=== PATIENT | female | born 1975 | race American Indian/Alaskan Native ===

== ENCOUNTER 2016-06-10 19:30 | Emergency (ER) | payer OTHER ==
[2016-06-10 19:41] VITALS: BP 116/80; PULSE 95; TEMP 98.2; BMI 25.9
--- NOTE | 2016-06-10 19:48 | PDOC ---
History of Present Illness - General History Source: Patient Exam Limitations: No Limitations - History of Present Illness Initial Comments: 06/10/16 20:14 The patient is a 40 year old female with a history of chronic body pain, who presents to the ED with chest congestion, cough, migraine headache, and generalized malaise. The patient states she has been having on and off body pains throughout the past few years after an incident where she fell down. Patient states her three daughters have all sick with cough, and cold. Patient denies any fever, chills, nausea, vomiting. Patient denies any urinary symptoms. <Marcus Castro - Last Filed: 06/10/16 20:14> <Alona Lockett - Last Filed: 06/11/16 05:34> - General Chief Complaint: Pain Stated Complaint: BODY ACHES,RT ARM,LF LEG, BACK,COUGH, STUFFY NOSE Time Seen by Provider: 06/10/16 19:38 Past History <Marcus Castro - Last Filed: 06/10/16 20:14> - Past Medical History Asthma: No Cancer: No Cardiac Disorders: No Diabetes: No HTN: No Kidney Stones: Yes Seizures: No Thyroid Disease: No - Family Disease History Family Disease History: Heart Disease: Mother, Other: Father (stroke) - Immunization History Immunization Up to Date: No - Psycho/Social/Smoking Cessation Hx Anxiety: No Suicidal Ideation: No Smoking Status: No Smoking History: Never smoked Have you smoked in the past 12 months: Yes Number of Cigarettes Smoked Daily: 7 If you are a former smoker, when did you quit?: 12/2012 Information on smoking cessation initiated: Yes 'Breaking Loose' booklet given: 06/10/16 Hx Alcohol Use: No Drug/Substance Use Hx: No Substance Use Type: None Hx Substance Use Treatment: No <Alona Lockett - Last Filed: 06/11/16 05:34> - Past Medical History Allergies/Adverse Reactions: Allergies Allergy/AdvReac Type Severity Reaction Status Date / Time No Known Allergies Allergy Verified 06/10/16 19:36 Home Medications: Ambulatory Orders Cyclobenzaprine HCl [Flexeril -] 10 mg PO HS #30 tablet 02/11/16 Gabapentin 300 mg PO BID 02/12/16 Ibuprofen 800 mg PO TID PRN #20 tablet 06/10/16 Methocarbamol [Robaxin -] 500 mg PO TID PRN #21 tablet 06/10/16 Review of Systems - Review of Systems Able to Perform ROS?: Yes Comments:: 06/10/16 20:14 CONSTITUTIONAL: Present: malaise. Absent: fever, no chills EYES: Absent: visual changes ENT: Absent: ear pain, no sore throat CARDIOVASCULAR: Absent: chest pain, no palpitations RESPIRATORY: Present: cough Absent: no SOB GI: Absent: abdominal pain, no nausea, no vomiting, no constipation, no diarrhea GENITOURINARY: Absent: dysuria, no frequency, no hematuria MUSKULOSKELETAL: Absent: back pain, no arthralgia, no myalgia SKIN: Absent: rash NEURO: Present: headache. <Marcus Castro - Last Filed: 06/10/16 20:14> *Physical Exam - Vital Signs Last Vital Signs Temp Pulse Resp BP Pulse Ox 98.2 F 95 H 18 116/80 100 06/10/16 19:30 06/10/16 19:30 06/10/16 19:30 06/10/16 19:30 06/10/16 19:30 - Physical Exam Comments: 06/10/16 20:16 GENERAL: The patient is awake, alert, and fully oriented, in no acute distress. HEAD: Normal with no signs of trauma. EYES: Pupils equal, round and reactive to light, extraocular movements intact, sclera anicteric, conjunctiva clear with no pallor. ENT: Ears normal, nares patent, oropharynx clear without exudates. Dry mucous membranes. NECK: Normal range of motion, supple without lymphadenopathy, JVD, or masses. LUNGS: Breath sounds equal, clear to auscultation bilaterally. No wheeze/ crackles. HEART: Regular rate and rhythm, normal S1 and S2 without murmur or rub. ABDOMEN: Mild tenderness at mid-epigastric region with no peritoneal signs. BS wnl. No guarding or rebound. No palpable masses. No hepatosplenomegaly. EXTREMITIES: Pain on straight leg raising. Normal range of motion, no edema. No clubbing or cyanosis. No cords, erythema, or tenderness. NEUROLOGICAL: Cranial nerves II through XII grossly intact. Normal speech, normal gait. PSYCH: Normal mood, normal affect. SKIN: Warm, Dry, normal turgor, no rashes or lesions noted. <Marcus Castro - Last Filed: 06/10/16 20:14> - Vital Signs Last Vital Signs Temp Pulse Resp BP Pulse Ox 98.2 F 95 H 18 116/80 100 06/10/16 19:30 06/10/16 19:30 06/10/16 19:30 06/10/16 19:30 06/10/16 19:30 <Alona Lockett - Last Filed: 06/11/16 05:34> ED Treatment Course - Medications Given in the ED: ED Medications Discontinued Medications Generic Name Dose Route Start Last Admin Trade Name Hellen PRN Reason Stop Dose Admin Ketorolac Tromethamine 60 mg 06/10/16 20:04 06/10/16 20:07 Toradol Injection - IM 06/10/16 20:05 60 mg ONCE ONE Administration <Marcus Castro - Last Filed: 06/10/16 20:14> Medical Decision Making - Medical Decision Making Documentation has been prepared under my direction and personally reviewed by me in its entirety. I attest that this documented accurately reflects all work, treatment, procedures and medical decision making performed by me. As noted above, this 40-year-old woman with a history of chronic neck pain/ lower back pain presents with several day history of chest congestion, subjective fever, generalized bodyaches. No new history of sensory losses or weakness. Patient has taken [id number] nonsteroidal anti-inflammatory medications and Flexeril muscle relaxant without significant relief. Exam as noted above. Patient given Toradol 60 mg IM. She is been advised to follow-up with her neurologist and physical therapist for further treatment of her chronic neck pain and lower back pain. Meanwhile, prescriptions for Motrin 800 mg as well as Robaxin 500 mg to be used as needed for pain and muscle spasm respectively will be sent to her pharmacy. She should return to the emergency room if she has any new sensory or motor findings. <Alona Lockett - Last Filed: 06/11/16 05:34> *DC/Admit/Observation/Transfer - Attestations Scribe Attestion: 06/10/16 20:17 Documentation prepared by Marcus Castro, acting as medical pathology teacher for Alona Lockett MD. <Marcus Castro - Last Filed: 06/10/16 20:14> <Alona Lockett - Last Filed: 06/11/16 05:34> Diagnosis at time of Disposition: Viral syndrome, Chronic neck pain - Discharge Dispostion Disposition: HOME Condition at time of disposition: Stable - Prescriptions Prescriptions: Ibuprofen 800 mg PO TID PRN #20 tablet PRN Reason: Pain Methocarbamol [Robaxin -] 500 mg PO TID PRN #21 tablet PRN Reason: Muscle Spasms - Patient Instructions Printed Discharge Instructions: Chronic Neck Pain Additional Instructions: rest;drink plenty of fluids warm compresses to areas of muscle spasm as needed Motrin as needed for pain Robaxin 500mg up to 3 times a day for muscle spasms followup with your neurologist within 2-3 days return to ER as needed
[2016-06-10] MEDS ORDERED: KETOROLAC TROMETHAMINE 60 MG/2 ML VIAL IM ONE (20:04)
[2016-06-10] MEDS ORDERED: CYCLOBENZAPRINE HCL 10 MG TABLET (FP) ONE (20:35)
[2016-06-10] MEDS ORDERED: IBUPROFEN 400 MG TABLET (FP) PO ONE (20:36)
== END 2016-06-10 20:45 | disposition home or self-care (01) ==
LOC: FER 19:30
PROC: 3E0233Z Introduction of Anti-inflammatory into Muscle, Percutaneous Approach (ICD-10-PCS; principal; 2016-06-10)
DX: B34.9 Viral infection, unspecified (principal); M54.2 Cervicalgia; G89.29 Other chronic pain
CPT/HCPCS: 99283-25

== ENCOUNTER 2016-07-17 00:49 | Emergency (ER) | payer OTHER ==
[2016-07-17 00:57] VITALS: BP 113/81; PULSE 92; TEMP 97.9; BMI 25.8
--- NOTE | 2016-07-17 00:59 | PDOC ---
History of Present Illness - General Chief Complaint: Respiratory Stated Complaint: COUGH X 2 WEEKS Time Seen by Provider: 07/17/16 00:54 History Source: Patient Exam Limitations: No Limitations - History of Present Illness Initial Comments: 07/17/16 00:54 This is a 40-year-old female comes in complaining of 2 weeks of intermittent persistent cough. Patient denies any fevers or chills. Patient was noted to be coughing in the emergency room and not bringing up anything when she coughed. Patient says she occasionally brings up something that is whitish patient said that her muscles are sore from her coughing and she is having a difficult time sleeping at night. PAST MEDICAL HISTORY: no significant history PAST SURGICAL HISTORY: no significant history FAMILY HISTORY: no pertinant history SOCIAL HISTORY: Pt lives with family and is employed. MEDICATIONS: reviewed ALLERGIES: As per nursing notes Review of Systems General: No fevers or chills, no weakness, no weight loss HEENT: No change in vision. No sore throat,. No ear pain CardioVascular: No chest pain or shortness of breath Respiratory:+ Cough Gastrointestinal: no nausea, vomitting, diarrhea or constipation, No rectal bleeding Genitourinary: No dysuria, hematuria, or frequency Musculoskeletal: No joint or muscle pain or swelling Neurologic: No headache, vertigo, dizziness or loss of consciousness Psychiatric: nor depression Skin: No rashes or easy bruising Endocrine: no increased thirst or abnormal weight change Allergic: no skin or latex allergy All other systems reviewed and normal GENERAL: The patient is awake, alert, and fully oriented, in no acute distress. HEAD: Normal with no signs of trauma. EYES: Pupils equal, round and reactive to light, extraocular movements intact, sclera anicteric, conjunctiva clear. CHEST: Lungs are clear to auscultation, there is good air entry, there is no wheezing, rhonchi, or rales EXTREMITIES: Normal range of motion, no edema. NEUROLOGICAL: Normal speech, normal gait. PSYCH: Normal mood, normal affect. SKIN: Warm, Dry, normal turgor, no rashes or lesions noted. Assessment and plan: This is a 40-year-old female who comes in with what she says is 2 weeks of coughing. Patient is not on any cough medication. Patient otherwise has no fever or any other symptoms of bronchitis or pneumonia. Patient 's cough is mostly dry. Patient given prescription for Tessalon Perles and told to follow-up with her primary care if not better in a few days Past History - Past Medical History Allergies/Adverse Reactions: Allergies Allergy/AdvReac Type Severity Reaction Status Date / Time No Known Allergies Allergy Verified 07/17/16 00:51 Home Medications: Ambulatory Orders Benzonatate [Tessalon Pearls -] 100 mg PO TID #21 capsule 07/17/16 Asthma: No Cancer: No Cardiac Disorders: No Diabetes: No HTN: No Kidney Stones: Yes Seizures: No Thyroid Disease: No - Family Disease History Family Disease History: Heart Disease: Mother, Other: Father (stroke) - Immunization History Immunization Up to Date: No - Psycho/Social/Smoking Cessation Hx Anxiety: No Suicidal Ideation: No Smoking Status: No Smoking History: Former smoker Have you smoked in the past 12 months: Yes Number of Cigarettes Smoked Daily: 7 If you are a former smoker, when did you quit?: 2012 'Breaking Loose' booklet given: 06/10/16 Hx Alcohol Use: No Drug/Substance Use Hx: No Substance Use Type: None Hx Substance Use Treatment: No *DC/Admit/Observation/Transfer Diagnosis at time of Disposition: Persistent cough - Discharge Dispostion Condition at time of disposition: Stable - Prescriptions Prescriptions: Benzonatate [Tessalon Pearls -] 100 mg PO TID #21 capsule - Referrals Referrals: Channing Teague MD [Primary Care Provider] - - Patient Instructions Additional Instructions: Take Tessalon Perles 1 capsule 3 times a day as needed for the cough for the next 7 days. Return to the emergency department immediately with ANY new, persistent or worsening symptoms. Continue any medications as previously prescribed by your physician. You should follow up with your primary doctor as soon as possible regarding today's emergency department visit. . Please make sure your doctor reviews the results of your emergency evaluation. Thank you for coming to the Emergency Department today for your care. It was a pleasure to see you today. Please note that your evaluation is INCOMPLETE until you follow-up with your doctor.
== END 2016-07-17 01:03 | disposition home or self-care (01) ==
LOC: FER 00:49
DX: R05 Cough (principal); Z87.891 Personal history of nicotine dependence
CPT/HCPCS: 99281-25

== ENCOUNTER 2017-10-15 17:46 | Emergency (ER) | payer OTHER ==
[2017-10-15 18:00] VITALS: BP 102/71; PULSE 75; TEMP 97.8; BMI 24.2
--- NOTE | 2017-10-15 18:36 | PDOC ---
History of Present Illness - General Chief Complaint: Pain Stated Complaint: CHEST PAIN Time Seen by Provider: 10/15/17 18:28 - History of Present Illness Initial Comments: 41-year-old female without comorbidities presents for evaluation of right shoulder pain. She points to the area of the right trapezius as the area of her discomfort she describes her pain as sharp exacerbated with activity relieved with massage the area with radiation into the arm. She has not taken anything for it. 10/15/17 18:32 Past History - Past Medical History Allergies/Adverse Reactions: Allergies Allergy/AdvReac Type Severity Reaction Status Date / Time No Known Allergies Allergy Verified 10/15/17 17:50 Home Medications: Ambulatory Orders Cyclobenzaprine HCl [Flexeril 10 mg] 10 mg PO HS PRN #10 tablet 10/15/17 Methylprednisolone [Medrol Dose Alexander] 4 mg PO ASDIR #21 tablet 10/15/17 Asthma: No Cancer: No Cardiac Disorders: No COPD: No Diabetes: No HTN: No Kidney Stones: Yes Seizures: No Thyroid Disease: No - Family Disease History Family Disease History: Heart Disease: Mother, Other: Father (stroke) - Immunization History Immunization Up to Date: No - Suicide/Smoking/Psychosocial Hx Smoking Status: No Smoking History: Former smoker Have you smoked in the past 12 months: Yes Number of Cigarettes Smoked Daily: 15 If you are a former smoker, when did you quit?: 2012 Information on smoking cessation initiated: Yes 'Breaking Loose' booklet given: 10/15/17 Hx Alcohol Use: No Drug/Substance Use Hx: No Substance Use Type: None Hx Substance Use Treatment: No Review of Systems - Review of Systems Musculoskeletal: Yes: See HPI, Neck Pain All Other Systems: Reviewed and Negative *Physical Exam - Vital Signs Last Vital Signs Temp Pulse Resp BP Pulse Ox 97.8 F 75 18 102/71 100 10/15/17 17:58 10/15/17 17:58 10/15/17 17:58 10/15/17 17:58 10/15/17 17:58 - Physical Exam Comments: GENERAL: The patient is awake, alert, and fully oriented, in no acute distress. HEAD: Normal with no signs of trauma. EYES: conjunctiva clear. ENT: Ears normal LUNGS: Breath sounds equal, clear to auscultation bilaterally. No wheezes, and no crackles. HEART: Regular rate and rhythm, normal S1 and S2 without murmur, rub or gallop. EXTREMITIES: Normal range of motion, no edema. No clubbing or cyanosis. No cords, erythema, or tenderness. NEUROLOGICAL: Cranial nerves II through XII grossly intact. Normal speech, normal gait. PSYCH: Normal mood, normal affect. SKIN: Warm, Dry, normal turgor, no rashes or lesions noted. Cervical spine skin color and temperature within normal limits she has decreased range of motion with pain. She has 5 out of 5 strength in bilateral upper extremities. She has a positive Spurling maneuver on the right negative on the left. She has no gross sensorimotor deficits. She's neurovascularly intact. 10/15/17 18:33 Medical Decision Making - Medical Decision Making Cervical radiculopathy. I'll give her Medrol Dosepak and Flexeril and have her follow-up with spine surgery. She does have a history of cervical radicular symptoms. She's undergone several cortisone shots in the past and her cervical spine. 10/15/17 18:34 *DC/Admit/Observation/Transfer Diagnosis at time of Disposition: Cervical radiculopathy - Discharge Dispostion Disposition: HOME Condition at time of disposition: Stable Decision to Admit order: No - Referrals Referrals: Channing Teague MD [Primary Care Provider] - Phillip Freed MD [Staff Physician] - - Patient Instructions Printed Discharge Instructions: DI for Cervical Radiculopathy Additional Instructions: Please follow-up with spine surgery for further evaluation and treatment options within the next 2-3 days. I've given you a steroid pack which she should start tomorrow morning and a muscle relaxer which should take one tablet before bedtime as it'll make you tired. Return to the emergency room should her symptoms worsen or go unresolved. - Post Discharge Activity
--- NOTE | 2017-10-17 13:03 | EKG ---
Test Reason : Blood Pressure : / mmHG Vent. Rate : 064 BPM Atrial Rate : 064 BPM P-R Int : 140 ms QRS Dur : 082 ms QT Int : 412 ms P-R-T Axes : 012 042 031 degrees QTc Int : 425 ms NORMAL SINUS RHYTHM NORMAL ECG WHEN COMPARED WITH ECG OF 13-AUG-2015 11:26, NO SIGNIFICANT CHANGE WAS FOUND Confirmed by EMMA WEBB MD ([id number]) on 10/17/2017 1:02:35 PM Referred By: Confirmed By:EMMA WEBB MD
== END 2017-10-15 18:45 | disposition home or self-care (01) ==
LOC: JERFT 17:46
DX: M54.12 Radiculopathy, cervical region (principal)
CPT/HCPCS: 93005; 93010; 99281-25

== ENCOUNTER 2018-02-23 12:01 | Emergency (ER) | payer OTHER ==
--- NOTE | 2018-02-23 12:14 | PDOC ---
History of Present Illness - General Chief Complaint: Pain Stated Complaint: RIGHT RIB PAIN Time Seen by Provider: 02/23/18 12:12 History Source: Patient Exam Limitations: No Limitations - History of Present Illness Initial Comments: 42 yo F no significant history (however she does have history of smoking) presenting with R sided rib pain. She noted that it is worse when she stretches her R arm, presses on the area, and when she was outside in the cold air. No recent fever, chills. +Cough today, which also reproduces the pain. No known sick contacts. No trauma. Denies SOB, GRANADOS, leg swelling. Does not use OCPs. Past History - Past Medical History Allergies/Adverse Reactions: Allergies Allergy/AdvReac Type Severity Reaction Status Date / Time No Known Allergies Allergy Verified 10/15/17 17:50 Home Medications: Ambulatory Orders Azithromycin [Zithromax 250mg Tablets -] 250 mg PO UTDICT #6 tab 02/23/18 Ibuprofen [Advil -] 200 mg PO ONCE 02/23/18 Asthma: No Cancer: No Cardiac Disorders: No COPD: No Diabetes: No HTN: No Kidney Stones: Yes Seizures: No Thyroid Disease: No - Family Disease History Family Disease History: Heart Disease: Mother, Other: Father (stroke) - Immunization History Immunization Up to Date: No - Suicide/Smoking/Psychosocial Hx Smoking Status: No Smoking History: Former smoker Have you smoked in the past 12 months: Yes Number of Cigarettes Smoked Daily: 15 If you are a former smoker, when did you quit?: 2012 'Breaking Loose' booklet given: 10/15/17 Hx Alcohol Use: No Drug/Substance Use Hx: No Substance Use Type: None Hx Substance Use Treatment: No Review of Systems - Review of Systems Able to Perform ROS?: Yes Comments:: GENERAL/CONSTITUTIONAL: No fever or chills. No weakness. HEAD, EYES, EARS, NOSE AND THROAT: No change in vision. No ear pain or discharge. No sore throat. CARDIOVASCULAR: No chest pain or shortness of breath. +R rib pain. RESPIRATORY: +Cough. No wheezing or hemoptysis. GASTROINTESTINAL: No nausea, vomiting, diarrhea or constipation. GENITOURINARY: No dysuria, frequency, or change in urination. MUSCULOSKELETAL: No joint or muscle swelling or pain. No neck or back pain. SKIN: No rash NEUROLOGIC: No headache, vertigo, loss of consciousness, or change in strength/ sensation. ENDOCRINE: No increased thirst. No abnormal weight change. HEMATOLOGIC/LYMPHATIC: No anemia, easy bleeding, or history of blood clots. ALLERGIC/IMMUNOLOGIC: No hives or skin allergy. *Physical Exam - Physical Exam Comments: GENERAL: Awake, alert, and fully oriented, in no acute distress HEAD: No signs of trauma EYES: PERRLA, EOMI, sclera anicteric, conjunctiva clear ENT: Auricles normal inspection, hearing grossly normal, nares patent, oropharynx clear without exudates. Moist mucosa NECK: Normal ROM, supple, no lymphadenopathy, JVD, or masses LUNGS: Dec air entry B/L, intermittent dry cough. Breath sounds equal. No wheezes, and no crackles. Pain reproducible to R lower rib margin. HEART: Regular rate and rhythm, normal S1 and S2, no murmurs, rubs or gallops ABDOMEN: Soft, mild RUQ tenderness, normoactive bowel sounds. No guarding, no rebound. No masses EXTREMITIES: Normal range of motion, no edema. No clubbing or cyanosis. No cords, erythema, or tenderness NEUROLOGICAL: Cranial nerves II through XII grossly intact. Normal speech, normal gait SKIN: Warm, Dry, normal turgor, no rashes or lesions noted. Medical Decision Making - Medical Decision Making 02/23/18 13:59 DDx includes MSK pain, acute marlene, pna. PE unlikely in light of clinical presentation. Pt reports improvement s/p neb treatment, but now with loose productive cough. Suspect this is bronchitis with bronchospasm. Will give azithro in light of smoking history. US no acute findings (obtained because the pain was close to the R anterior inferior costal margin, near GB). CXR no consolidation. Stable for DC home. *DC/Admit/Observation/Transfer Diagnosis at time of Disposition: Chest wall pain - Discharge Dispostion Disposition: HOME Condition at time of disposition: Stable Decision to Admit order: No - Prescriptions Prescriptions: Azithromycin [Zithromax 250mg Tablets -] 250 mg PO UTDICT #6 tab - Referrals Referrals: Channing Teague MD [Primary Care Provider] - - Patient Instructions Printed Discharge Instructions: DI for Acute Bronchitis, DI for Atypical Chest Pain - Post Discharge Activity
[2018-02-23 12:28] LABS: URINE APPEARANCE Cloudy; URINE BILIRUBIN Negative (NEGATIVE); URINE COLOR Yellow; URINE GLUCOSE (UA) Negative (NEGATIVE); URINE KETONE Negative (NEGATIVE); URINE LEUK ESTERASE TRACE (NEGATIVE); URINE NITRITE Negative (NEGATIVE); URINE PROTEIN Negative (NEGATIVE); URINE UROBILINOGEN 0.2 (0.2-1.0)
[2018-02-23 12:35] LABS: HCG,QUALITATIVE URINE Negative
[2018-02-23 12:40] VITALS: BP 110/72; PULSE 88; TEMP 98.7; BMI 24.2
[2018-02-23] MEDS ORDERED: ALBUTEROL SO4 0.083% IH SOL 2.5 MG/3 ML VIAL.NEB. NEB ONE ×2 (12:44→12:49)
[2018-02-23 12:54] LABS: EPI CELLS 4+ /HPF; URINE RBC 0-2 /hpf (0-3); URINE WBC 0-2 (0-5)
--- NOTE | 2018-02-24 11:33 | EKG ---
Test Reason : Blood Pressure : / mmHG Vent. Rate : 077 BPM Atrial Rate : 077 BPM P-R Int : 152 ms QRS Dur : 080 ms QT Int : 388 ms P-R-T Axes : 066 041 042 degrees QTc Int : 439 ms POOR DATA QUALITY, INTERPRETATION MAY BE ADVERSELY AFFECTED NORMAL SINUS RHYTHM NORMAL ECG WHEN COMPARED WITH ECG OF 15-OCT-2017 18:03, NO SIGNIFICANT CHANGE WAS FOUND Confirmed by MAYLIN ROBERTO MD ([id number]) on 02/24/2018 11:33:22 AM Referred By: BRICE HUNT Confirmed By:MAYLIN ROBERTO MD
== END 2018-02-23 14:01 | disposition home or self-care (01) ==
LOC: FER 12:01
PROC: 3E0F7GC Introduction of Other Therapeutic Substance into Respiratory Tract, Via Natural or Artificial Opening (ICD-10-PCS; principal; 2018-02-23)
DX: R07.89 Other chest pain (principal); Z87.891 Personal history of nicotine dependence
CPT/HCPCS: 71046-TC-FY; 76705-TC; 81003; 81015; 84703; 93005; 99282-25

== ENCOUNTER 2018-11-27 23:53 | Emergency (ER) | payer OTHER, SELFPAY | END 2018-11-28 02:13 | disposition home or self-care (01) | LOC: FER 23:53 ==

== ENCOUNTER 2018-12-10 00:25 | Emergency (ER) | payer SELFPAY ==
[2018-12-10 00:33] VITALS: BP 111/76; PULSE 81; BMI 25.9
[2018-12-10] MEDS ORDERED: KETOROLAC TROMETHAMINE 60 MG/2 ML VIAL IM ONE (00:33)
[2018-12-10] MEDS ORDERED: CYCLOBENZAPRINE HCL 10 MG TABLET (FP) PO ONE (00:33)
[2018-12-10] MEDS ORDERED: predniSONE 20 MG TABLET (UD) PO ONE (00:33)
[2018-12-10] MEDS ORDERED: CYCLOBENZAPRINE HCL 10 MG TABLET (FP) ONE (00:36)
[2018-12-10] MEDS ORDERED: KETOROLAC TROMETHAMINE 60 MG/2 ML VIAL ONE (00:36)
[2018-12-10] MEDS ORDERED: predniSONE 20 MG TABLET (UD) ONE (00:36)
--- NOTE | 2018-12-10 00:38 | PDOC ---
History of Present Illness - General Chief Complaint: Pain, Acute Stated Complaint: PAIN RIGHT SIDE OF BACK RADIATING DOWN LEG Time Seen by Provider: 12/10/18 00:28 History Source: Patient Exam Limitations: No Limitations - History of Present Illness Initial Comments: 12/10/18 00:32 This is a 42-year-old female with long history of chronic back neck and sciatica pain who intermittently has flareups. Patient said she was moving this weekend and it caused R of her pain to flare up. Patient was moving this weekend and said that after moving this weekend and everything has flared up. Patient says there is no new component to it other than it is worse than usual. Patient denies that there is any loss of continence or weakness. Patient is experiencing some what she calls pins and needles in her leg. Allergies: as per nursing notes Past Medical History: none Social history: Lives with family. No smoking. No alcohol. No illicit drugs. Surgical history: None General: No fevers or chills, no weakness, no weight loss HEENT: No change in vision. No sore throat,. No ear pain CardioVascular: no chest discomfort. No shortness of breath Respiratory:No cough, or wheezing. Gastrointestinal: no nausea, vomiting, diarrhea or constipation, No rectal bleeding Genitourinary: No dysuria, hematuria, or frequency Musculoskeletal: No joint or muscle pain or swelling Neurologic: No headache, vertigo, dizziness or loss of consciousness BACK sciatica and low back pain Psychiatric: nor depression Skin: No rashes or easy bruising Endocrine: no increased thirst or abnormal weight change Allergic: no skin or latex allergy All other systems reviewed and normal GENERAL: The patient is awake, alert, and fully oriented, in no acute distress. HEAD: Normal with no signs of trauma. EYES: Pupils equal, round and reactive to light, extraocular movements intact, sclera anicteric, conjunctiva clear. Back: There is tenderness on palpation over the sciatic area bilaterally as well as the lower lumbar upper sacral spine was a lateral paraspinal spasm. Neurovascular is intact. EXTREMITIES:atraumatic, Normal range of motion, no edema. NEUROLOGICAL: Normal speech, normal gait. PSYCH: Normal mood, normal affect. SKIN: Warm, Dry, normal turgor, no rashes or lesions noted. Assessment and plan: This is a 42-year-old female with acute exacerbation of her low back and sciatica pain secondary to moving this weekend. Patient given Toradol, prednisone and Flexeril and discharged home. Patient will follow-up with her primary care doctor. Past History - Past Medical History Allergies/Adverse Reactions: Allergies Allergy/AdvReac Type Severity Reaction Status Date / Time No Known Allergies Allergy Verified 12/10/18 00:27 Home Medications: Ambulatory Orders Hydrocortisone 2.5% Topical Cr [Anusol 2.5% Hc Cream -] 1 applic RC BID #1 tube 11/28/18 Cyclobenzaprine HCl [Flexeril -] 10 mg PO HS #30 tablet 12/10/18 Hydrocortisone 2.5% Topical Cr [Anusol 2.5% Hc Cream -] 1 applic RC DAILY #1 tube 12/10/18 Naproxen [Naprosyn] 500 mg PO BID #28 tablet 12/10/18 Asthma: No Cancer: No Cardiac Disorders: No COPD: No Diabetes: No HTN: No Kidney Stones: Yes Seizures: No Thyroid Disease: No - Family Disease History Family Disease History: Heart Disease: Mother, Other: Father (stroke) - Immunization History Immunization Up to Date: No - Suicide/Smoking/Psychosocial Hx Smoking Status: No Smoking History: Current every day smoker Have you smoked in the past 12 months: Yes Number of Cigarettes Smoked Daily: 15 If you are a former smoker, when did you quit?: 2012 'Breaking Loose' booklet given: 10/15/17 Hx Alcohol Use: No Drug/Substance Use Hx: No Substance Use Type: None Hx Substance Use Treatment: No *DC/Admit/Observation/Transfer Diagnosis at time of Disposition: Sciatica - Discharge Dispostion Disposition: HOME Condition at time of disposition: Stable Decision to Admit order: No - Referrals - Patient Instructions Additional Instructions: For the back pain take naproxen 1 tablet twice a day. For the muscle spasm take Flexeril one tablet before bed it will also help to sleep. For the rectal pain use the Anusol cream as directed on the box. Return to the emergency department immediately with ANY new, persistent or worsening symptoms. Continue any medications as previously prescribed by your physician. You should follow up with your primary doctor as soon as possible regarding today's emergency department visit. . Please make sure your doctor reviews the results of your emergency evaluation. Thank you for coming to the Emergency Department today for your care. It was a pleasure to see you today. Please note that your evaluation is INCOMPLETE until you follow-up with your doctor. 4 - Post Discharge Activity
== END 2018-12-10 00:45 | disposition home or self-care (01) ==
LOC: FER 00:25
PROC: 3E0233Z Introduction of Anti-inflammatory into Muscle, Percutaneous Approach (ICD-10-PCS; principal; 2018-12-10)
DX: M54.41 Lumbago with sciatica, right side (principal); F17.210 Nicotine dependence, cigarettes, uncomplicated; N20.0 Calculus of kidney
CPT/HCPCS: 99281-25

== ENCOUNTER 2018-12-22 03:07 | Emergency (ER) | payer SELFPAY ==
--- NOTE | 2018-12-22 03:25 | PDOC ---
History of Present Illness - General Chief Complaint: Pain, Acute Stated Complaint: FELL INJURING LEFT FOOT AND LEFT SHOULDER/WRIST Time Seen by Provider: 12/22/18 03:09 - History of Present Illness Initial Comments: 12/22/18 03:53 This 43-year-old woman with no significant past medical history presents with left shoulder/wrist/ankle pain after a fall approximately an hour prior to presentation. Patient states that she was walking across the street in [place] when she fell in a pothole, turning her left ankle and bracing herself with her left arm. No head/neck trauma noted. No LOC. She was able to ambulate but has had an increasing pain in her left ankle as well as in the left upper back/left shoulder and left wrist since the injury. No chest pain/ shortness of breath/abdominal pain. On no daily medications No known ALLERGIES Denies smoking/daily alcohol/recreational drug use Past History - Past Medical History Allergies/Adverse Reactions: Allergies Allergy/AdvReac Type Severity Reaction Status Date / Time No Known Allergies Allergy Verified 12/22/18 03:09 Home Medications: Ambulatory Orders NK [No Known Home Medication] 12/22/18 Asthma: No Cancer: No Cardiac Disorders: No COPD: No Diabetes: No HTN: No Kidney Stones: Yes Seizures: No Thyroid Disease: No - Family Disease History Family Disease History: Heart Disease: Mother, Other: Father (stroke) - Immunization History Immunization Up to Date: No - Suicide/Smoking/Psychosocial Hx Smoking Status: No Smoking History: Current every day smoker Have you smoked in the past 12 months: Yes Number of Cigarettes Smoked Daily: 15 If you are a former smoker, when did you quit?: 2012 'Breaking Loose' booklet given: 12/10/18 Hx Alcohol Use: No Drug/Substance Use Hx: No Substance Use Type: None Hx Substance Use Treatment: No Review of Systems - Review of Systems Able to Perform ROS?: Yes Comments:: 12 point review of systems is negative except for what is noted in the history of present illness *Physical Exam - Physical Exam Comments: GENERAL: Adult female, alert and oriented 3, in mild distress secondary to ankle/shoulder area pain HEAD: Normal with no signs of trauma. EYES: PERRLA, EOMI, sclera anicteric, conjunctiva clear. NECK: Normal range of motion, supple without lymphadenopathy, JVD, or masses. No midline tenderness Moderate tenderness of the left trapezius muscle LUNGS: Breath sounds equal, clear to auscultation bilaterally. No wheezes, and no crackles. No chest wall tenderness HEART:Regular rate and rhythm, normal S1 and S2 without murmur, rub or gallop. EXTREMITIES: Mild tenderness of the acromioclavicular joint area, left side pain reproduced with abduction of left arm No left clavicular step offs or deformity present Left ankle: Mild edema/moderate tenderness just distal to lateral malleolus; no ligamentous instability present No fifth metatarsal tenderness/ edema NEUROLOGICAL: Cranial nerves II through XII grossly intact. Normal speech. No focal neurological deficits. Medical Decision Making - Medical Decision Making Left shoulder/left wrist/left ankle x-rays performed. Preliminary interpretation by me: No evidence of fracture or dislocation in any image. Clinical presentation consistent with left shoulder strain/left wrist strain/ left ankle sprain. Results discussed with patient. Removable stirrup splint placed on left ankle. Ed wrap applied to left wrist. Patient given 600 Motrin by mouth (patient states that she routinely takes ibuprofen for pain). She is discharged with suggestion to follow-up with Drs. Hernandez/Issac within the next week and to avoid strenuous activity over the next several days. *DC/Admit/Observation/Transfer Diagnosis at time of Disposition: Left shoulder strain Qualifiers: Encounter type: initial encounter Qualified Code(s): S46.912A - Strain of unspecified muscle, fascia and tendon at shoulder and upper arm level, left arm , initial encounter Left ankle sprain Qualifiers: Encounter type: initial encounter Involved ligament of ankle: anterior talofibular ligament Qualified Code(s): S93.492A - Sprain of other ligament of left ankle, initial encounter - Discharge Dispostion Disposition: HOME Condition at time of disposition: Stable - Referrals Referrals: Channing Teague MD [Primary Care Provider] - Phillip Hernandez MD [Staff Physician] - - Patient Instructions Printed Discharge Instructions: DI for Ankle Sprain Additional Instructions: Rest; avoid strenuous activity for the next few days splint to ankle/Ed wrap to wrist during the day for the next week Motrin 600-800 mg every 8 hours as needed for pain/take with food After 48 hours, local warm compresses to upper back as needed Follow-up with orthopedic group (Valentina Hernandez/Issac) within the next 5-7 days - Post Discharge Activity
[2018-12-22 03:28] VITALS: BP 121/74; PULSE 85; TEMP 98.3; BMI 25.8
[2018-12-22] MEDS ORDERED: IBUPROFEN 600 MG TABLET (FP) PO ONE ×2 (04:09→04:10)
== END 2018-12-22 04:42 | disposition home or self-care (01) ==
LOC: FER 03:07
PROC: 2W3RX1Z Immobilization of Left Lower Leg using Splint (ICD-10-PCS; principal; 2018-12-22)
DX: S93.492A Sprain of other ligament of left ankle, initial encounter (principal); S46.912A Strain of unspecified muscle, fascia and tendon at shoulder and upper arm level, left arm, initial encounter; W18.39XA Other fall on same level, initial encounter; Y93.89 Activity, other specified; Y92.89 Other specified places as the place of occurrence of the external cause; F17.210 Nicotine dependence, cigarettes, uncomplicated
CPT/HCPCS: 73030-TC-LT-FY; 73110-TC-LT-FY; 73610-TC-LT-FY; 99281-25

== ENCOUNTER 2019-03-06 19:46 | Emergency (ER) | payer OTHER ==
[2019-03-06 20:10] VITALS: BP 117/79; PULSE 84; TEMP 98.1; BMI 26.9
[2019-03-06] MEDS ORDERED: morphine CARPU-JECT 2 MG/1 ML DISP.SYRIN IM ONE (20:14)
[2019-03-06] MEDS ORDERED: morphine SULFATE 4 MG/ML VIAL ONE (20:19)
[2019-03-06] MEDS ORDERED: MINERAL OIL ENEMA 133 ML ENEMA PR ONE ×2 (20:42→20:50)
[2019-03-06] MEDS ORDERED: SODIUM PHOSPHATE/NA BIPHOS 133 ML ENEMA PR ONE ×2 (20:48→21:14)
--- NOTE | 2019-03-06 20:48 | PDOC ---
Documentation entered by Jyothi Villeda SCRIBE, acting as scribe for Deepa Tony MD. Deepa Tony MD: This documentation has been prepared by the Ronal cárdenas Sammi, SCRIBE, under my direction and personally reviewed by me in its entirety. I confirm that the documentation accurately reflects all work, treatment, procedures, and medical decision making performed by me. History of Present Illness - General Chief Complaint: Constipation Stated Complaint: CONSTIPATION Time Seen by Provider: 03/06/19 19:53 - History of Present Illness Initial Comments: 03/06/19 20:10 The patient is a 43 year old female who presents for evaluation of 3 days of constipation with last regular bowel movement Sunday night. She notes trying to disimpact it with her finger with no success. Denies trying any OTC treatments. The patient endorses nausea and the urge to vomit during episodes of straining. She also notes some blood on wiping. The patient states she has been snacking on a Jignesh cheese the past several days and notes this may be the cause constipation. Denies fever, chills, chest pain, SOB, palpitation, dizziness, weakness, D, bladder and bowel problems, leg swelling, No sick contacts or travel. No new changes in medications. Allergies: None Past Medical History: Hemorrhoids, chronic back pain, sciatica, psoriasis Social history: Lives with family. No tobacco, ETOH or drug use. Meds: as documented in EMR ROS Constitutional: no fevers or chills. HEENT: no headache or dizziness. No congestion. No visual/hearing disturbances. CVS: no cp or syncope. Resp: no sob. No cough. Gastrointestinal: +constipation +nausea, no vomiting or diarrhea. +abdominal pressure. Genitourinary: no urinary sx, hematuria. MUSCULOSKELETAL: No joint pain and swelling. No neck or back pain. NEUROLOGIC: No headache, dizziness, LOC or altered mental status. No weakness, numbness or tingling. Psych: no anxiety or depression Allergic/Immunologic: no allergies All other systems reviewed and negative, or as documented in HPI. Physical exam: General: Well appearing, awake and alert, NAD. HEENT: NCAT, PERRL, EOMI, clear conjunctiva, anicteric, moist mucous membranes , clear oropharynx, no oral lesions.. Neck: neck supple, FROM Resp: CTAB, normal and even respirations, no respiratory distress CVS: RRR, no murmurs, 2+ peripheral pulses throughout, no peripheral edema Abdomen: +suprapubic tenderness. no rebound or guarding. No CVAT. Rectal: +brown stool, large fecal ball in the rectal vault. no gross blood. external skin tags, no thrombosed hemorrhoids Back: nontender, normal inspection and ROM MSK: no edema, GUZMAN x4, ROM intact. No clubbing or cyanosis. normal bulk and tone. Extremities: no calf tenderness Neuro: alert, oriented appropriately; no focal neurologic deficits Skin: warm and well perfused, cap refill <2 sec, normal color 03/06/19 20:43 Past History - Past Medical History Allergies/Adverse Reactions: Allergies Allergy/AdvReac Type Severity Reaction Status Date / Time No Known Allergies Allergy Verified 03/06/19 20:03 Home Medications: Ambulatory Orders Polyethylene Glycol 3350 [Miralax (For Bowel Prep) -] 17 gm PO DAILY PRN #1 bottle 03/06/19 Sennosides/Docusate Sodium [Senna-Docusate Sodium Tablet] 1 each PO BID PRN 7 Days #14 tablet 03/06/19 Asthma: No Cancer: No Cardiac Disorders: No COPD: No Diabetes: No HTN: No Kidney Stones: Yes Seizures: No Thyroid Disease: No - Immunization History Immunization Up to Date: No - Psycho Social/Smoking Cessation Hx Smoking Status: No Smoking History: Current every day smoker Have you smoked in the past 12 months: Yes Number of Cigarettes Smoked Daily: 15 If you are a former smoker, when did you quit?: 2012 'Breaking Loose' booklet given: 12/10/18 Hx Alcohol Use: No Drug/Substance Use Hx: No Substance Use Type: None Hx Substance Use Treatment: No *Physical Exam - Vital Signs Last Vital Signs Temp Pulse Resp BP Pulse Ox 98.1 F 84 16 117/79 98 03/06/19 19:47 03/06/19 19:47 03/06/19 19:47 03/06/19 19:47 03/06/19 19:47 Medical Decision Making - Medical Decision Making 03/06/19 20:44 Vital Signs Temp Pulse Resp BP Pulse Ox 98.1 F 84 16 117/79 98 03/06/19 19:47 03/06/19 19:47 03/06/19 19:47 03/06/19 19:47 03/06/19 19:47 VS reviewed wnl abdomen nonperitoneal rectal exam with impacted fecal ball given morphine, used lubricant and disimpacted mineral oil enema pt made BM in the ED x2 after disimpaction and meds, feels much improved. able to ambulate, abdomen remains soft. doubt obstruction or intra abdominal process, so no labs or imaging indicated. stool softeners miralax instructions high fiber diet and constipation care, avoid triggers (as this could be food related), hydration stable for discharge, supportive measures, PCP followup 03/06/19 21:15 Discharge - Discharge Information Problems reviewed: Yes Clinical Impression/Diagnosis: Fecal impaction Condition: Good Disposition: HOME - Admission No - Additional Discharge Information Prescriptions: Polyethylene Glycol 3350 [Miralax (For Bowel Prep) -] 17 gm PO DAILY PRN #1 bottle PRN Reason: Constipation Sennosides/Docusate Sodium [Senna-Docusate Sodium Tablet] 1 each PO BID PRN 7 Days #14 tablet PRN Reason: Constipation - Follow up/Referral - Patient Discharge Instructions Patient Printed Discharge Instructions: Increased Dietary Fiber May Improve Constipation Conditions With Pelvic Reynaldo, DI for Constipation Additional Instructions: - You were seen in the emergency department for constipation. Return if worsening symptoms. - You have been prescribed docusate (colace) and senna. These should be taken every day. If you do not have regular bowel movements after 2-3 days, you may add Miralax or Metamucil daily. These can be bought at any pharmacy and are available over the counter. - use the fleet enema as needed once per rectum for lubrication and constipation relief. - High fiber diet encouraged: beans, fruits, vegetables, whole grains. - Make sure you are drinking plenty of water, at least 6-8 cups per day ideally. - You should follow up with your primary doctor within the next 2-3 days for evaluation and to help you adjust medications for your constipation. Discharge: Take Sennakot-Docusate twice a day, ingest with full glass of water. Maintain fluid intake 6-8 glasses per day. Please increase fibers in your diet. You may also take Milk of Magnesia 30 mL as needed for constipation, you may repeat in 2 hours again if no bowel movement. - Post Discharge Activity
== END 2019-03-06 21:30 | disposition home or self-care (01) ==
LOC: FER 19:46
PROC: 3E023NZ Introduction of Analgesics, Hypnotics, Sedatives into Muscle, Percutaneous Approach (ICD-10-PCS; principal; 2019-03-06)
DX: K56.41 Fecal impaction (principal); F17.210 Nicotine dependence, cigarettes, uncomplicated
CPT/HCPCS: 99282-25

== ENCOUNTER 2019-12-28 16:12 | Emergency (ER) | payer OTHER ==
[2019-12-28 16:22] VITALS: BP 118/70; PULSE 70; TEMP 97.9; BMI 27.4
[2019-12-28] MEDS ORDERED: MECLIZINE HCL 25 MG TABLET (FP) PO ONE (16:29)
[2019-12-28] MEDS ORDERED: MECLIZINE HCL 25 MG TABLET (FP) ONE (16:31)
--- NOTE | 2019-12-28 16:36 | PDOC ---
History of Present Illness - General Chief Complaint: Nausea Stated Complaint: NAUSEA, DIZZINESS Time Seen by Provider: 12/28/19 16:15 - History of Present Illness Initial Comments: 12/28/19 16:31 44yo female with no pmhx presents for eval of an episode of dizziness. States she was sitting at the counter, when she lifted her head she felt the room was spinning and her body was moving. States she had another similar episode a few days ago after getting out of the pool. Pt states the episode made her nauseated. States the symptoms have mostly resolved now, but when she stands she still feels the rooms is spinning and her body is moving. Pt denies garcia. No neck pain. No cp/sob. No abd pain. No v/d. C/o nausea earlier-which she induced an episode of vomiting, but currently resolved. Pt is currently menstruating. Pt denies edema or recent travel. No tinnitus or ear pain. States she has had nasal congestion recently, but denies all other URI symptoms. Pt states she felt scared with the episode this AM because she recently hear that her friend last night from an [place]/MVA. States she was crying all morning. Pt states she drank coffee and soda only today and only had a sandwich because she was upset. Pt denies all other symptoms or complaints. Pmhx: denies Pshx: denies all: nkda meds: denies soc hx: +tobacco, denies etoh,drugs Past History - Medical History Allergies/Adverse Reactions: Allergies Allergy/AdvReac Type Severity Reaction Status Date / Time No Known Allergies Allergy Verified 12/28/19 16:24 Home Medications: Ambulatory Orders Meclizine HCl [Antivert -] 25 mg PO TID PRN #9 tablet 12/28/19 Asthma: No Cancer: No Cardiac Disorders: No COPD: No Diabetes: No GI Disorders: Yes (HEMORRHOIDS) HTN: No Kidney Stones: Yes Seizures: No Thyroid Disease: No - Reproductive History Is Patient Now?: No - Immunization History Immunization Up to Date: No - Psycho-Social/Smoking History Smoking Status: No Smoking History: Current every day smoker Have you smoked in the past 12 months: Yes Number of Cigarettes Smoked Daily: 8 If you are a former smoker, when did you quit?: 2012 Information on smoking cessation initiated: Yes 'Breaking Loose' booklet given: 03/06/19 - Substance Abuse Hx (Audit-C & DAST Scrn) How often the patient has a drink containing alcohol: Never Score: In Men: 4 or > Positive; In Women: 3 or > Positive: 0 Screen Result (Pos requires Nsg. Audit-10AR): Negative In the last yr the pt used illegal drug/Rx for NonMed reason: No Score: Yes response is considered Positive: 0 Screen Result (Positive result requires Nsg. DAST-10): Negative Review of Systems - Review of Systems Able to Perform ROS?: Yes Is the patient limited Japanese proficient: No Constitutional: No: Chills, Fever HEENTM: Yes: Nose Congestion. No: Ear Pain, Throat Pain Respiratory: No: Cough, Shortness of Breath Cardiac (ROS): No: Chest Pain, Lightheadedness, Palpitations ABD/GI: Yes: Nausea. No: Diarrhea, Vomiting, Abdominal cramping : No: Burning, Dysuria Musculoskeletal: No: Back Pain, Neck Pain Integumentary: No: Rash Neurological: Yes: Dizziness. No: Headache, Numbness, Paresthesia, Tingling, Tremors, Weakness, Ataxia Psychiatric: Yes: Stressors All Other Systems: Reviewed and Negative *Physical Exam - Vital Signs Last Vital Signs Temp Pulse Resp BP Pulse Ox 97.9 F 70 15 118/70 100 12/28/19 16:14 12/28/19 16:14 12/28/19 16:14 12/28/19 16:14 12/28/19 16:14 - Physical Exam General Appearance: Yes: Nourished, Appropriately Dressed. No: Apparent Distress HEENT: positive: EOMI, MARISABEL, Normal Voice, TMs Normal, Pharynx Normal, Nasal Congestion, Other (no nystagmus, but movement of eyes induced dizziness). negative: Rhinorrhea, Sinus Tenderness Neck: positive: Trachea midline, Supple. negative: Tender Respiratory/Chest: positive: Lungs Clear, Normal Breath Sounds. negative: Respiratory Distress Cardiovascular: positive: Regular Rhythm, Regular Rate, S1, S2. negative: Edema Gastrointestinal/Abdominal: positive: Soft. negative: Guarding, Rebound, Tenderness Musculoskeletal: positive: Normal Inspection Extremity: positive: Normal Capillary Refill, Normal Inspection, Normal Range of Motion. negative: Swelling, Calf Tenderness Integumentary: positive: Normal Color, Dry, Warm Neurologic: positive: well services operator II-XII NML intact, Fully Oriented, Alert, Normal Mood /Affect, Normal Response, Motor Strength 5/5 Heart Score/ECG Review - ECG Intrepretation Comment:: 12/28/19 16:49 sinus at 69, nl axis, nl interval, no acute st/t wave findings ED Treatment Course - LABORATORY CBC & Chemistry Diagram: 12/28/19 16:40 12/28/19 16:40 Medical Decision Making - Medical Decision Making 12/28/19 16:37 a/p: 44yo female with vertiginous symptoms this AM -ambulated into the Er with a steady gait -neuro intact -recently swimming (no signs/symptoms of OM/OE) and recent stress -has not seen a PMD in 10 years -will send labs, ekg -will medicate with meclizine -will monitor and reassess 12/28/19 16:49 pt is currently menstruating 12/28/19 17:18 labs reviewed and discussed with the patient 12/28/19 17:18 discussed water intake discussed follow up with pmd discussed cutting back on caffeine discussed follow up with ENT and Neuro answered all questions Discharge - Discharge Information Problems reviewed: Yes Clinical Impression/Diagnosis: Vertigo Condition: Stable - Admission No - Additional Discharge Information Prescriptions: Meclizine HCl [Antivert -] 25 mg PO TID PRN #9 tablet PRN Reason: Vertigo - Follow up/Referral Referrals: Julio Velázquez MD [Staff Physician] - Channing Teague MD [Primary Care Provider] - Phillip Steele MD [Staff Physician] - Nikko Jorge MD [Staff Physician] - Julio Guadarrama MD [Staff Physician] - - Patient Discharge Instructions Patient Printed Discharge Instructions: DI for Vertigo Additional Instructions: Please take all medications as prescribed. Please drink more water and cut back on the caffeine intake. Please also stop smoking. Please make an appointment with the primary care physician for further evaluation. Please also follow up with the ENT and neurologist for further evaluation of the dizziness. Please eat regular meals. Please return to the ER with any further concerns or complaints. - Post Discharge Activity
[2019-12-28 16:52] LABS: HCG,QUALITATIVE URINE Negative
[2019-12-28 17:09] LABS: BASO % 0.9 % (0-2.0); EOS % 2.1 % (0-4.5); HEMATOCRIT 42.5 % (32.4-45.2); HEMOGLOBIN 14.1 GM/dl (10.7-15.3); LYMPH % 26.3 % (8-40); MCH 28.1 pg (25.7-33.7); MEAN CELL VOLUME 85.1 fl (80-96); MONO % 6.5 % (3.8-10.2); NEUT % 64.2 % (42.8-82.8); PLATELET COUNT 436 K/MM3 (134-434); RDW 14.3 % (11.6-15.6); WHITE BLOOD COUNT 11.2 K/mm3 (4.0-10.8)
[2019-12-28 17:11] LABS: ALBUMIN 3.9 g/dl (3.4-5.0); BILIRUBIN,TOTAL 0.4 mg/dl (0.2-1); CALCIUM 8.8 mg/dl (8.5-10); CREATININE 0.6 mg/dl (0.55-1.3); TOT PROT 7.1 g/dl (6.4-8.2)
--- NOTE | 2019-12-29 12:45 | EKG ---
Test Reason : Blood Pressure : / mmHG Vent. Rate : 069 BPM Atrial Rate : 069 BPM P-R Int : 154 ms QRS Dur : 078 ms QT Int : 422 ms P-R-T Axes : 057 027 029 degrees QTc Int : 452 ms NORMAL SINUS RHYTHM NORMAL ECG WHEN COMPARED WITH ECG OF 23-FEB-2018 12:32, NO SIGNIFICANT CHANGE WAS FOUND Confirmed by Jarad Kim ([id number]) on 12/29/2019 12:45:23 PM Referred By: Confirmed By:Jarad Kim
== END 2019-12-28 17:26 | disposition home or self-care (01) ==
LOC: SUPCPDRO 16:12 → FER 16:12
DX: H81.10 Benign paroxysmal vertigo, unspecified ear (principal)
CPT/HCPCS: 36415; 80053; 81003; 81015; 84703; 85025; 93005; 99284-25

== ENCOUNTER 2019-12-31 11:44 | Emergency (ER) | payer OTHER ==
[2019-12-31 11:52] VITALS: BP 148/72; PULSE 80; TEMP 99; BMI 25.8
--- NOTE | 2019-12-31 12:00 | PDOC ---
History of Present Illness - General Chief Complaint: Bite Stated Complaint: BEE STING TO RIGHT HAND ON SUNDAY Time Seen by Provider: 12/31/19 11:46 - History of Present Illness Initial Comments: 12/31/19 13:12 Chief complaint: Bee sting HPI: Stung by bee right wrist on Sunday. Today increased pain redness and swelling of the site. Review of systems: Denies fever/chills, headache, URI symptoms, sore throat, cough, chest pain, shortness of breath, abdominal pain, nausea, vomiting, diarrhea, fatigue, malaise, or other constitutional symptoms. Remainder of systems reviewed and negative Past medical history: Reviewed and noncontributory. No medications Social/family history reviewed and noncontributory Physical exam: Alert and oriented well-developed well-nourished no acute distress cooperative Afebrile, vital signs normal Right wrist: There is an extensive old laceration of the volar aspect of the wrist sustained on broken glass in 2013. This was repaired by plastic surgeon. However there remains a minor deformity. There is a suggestion of a insect bite or sting volar aspect of the mid wrist with surrounding swelling heat and erythema. This extends approximately 1 cm distally and 3 to 4 cm proximally. There are no epitrochlear or axillary nodes palpable. There is full range of motion of the wrist and digits, no pain with stretching of the tendons. Impression: Local allergic reaction versus early infection Plan: Rest and elevation. Cool compresses. Benadryl and cephalexin. Close follow-up 1 to 2 [address] physician or Dr. Davenport, hand specialist. It was strongly recommended that the patient not use the arm for any sustained activity, keep it elevated, and follow-up as directed if the symptoms do not improve quickly. She seems to understand and agrees. Fully ambulatory and in no significant pain or other distress at discharge to follow-up as directed Past History - Medical History Allergies/Adverse Reactions: Allergies Allergy/AdvReac Type Severity Reaction Status Date / Time No Known Allergies Allergy Verified 12/31/19 11:45 Home Medications: Ambulatory Orders Cephalexin Monohydrate [Keflex] 250 mg PO Q6H #30 capsule 12/31/19 Diphenhydramine [Benadryl -] 50 mg PO TID #15 capsule 12/31/19 Asthma: No Cancer: No Cardiac Disorders: No COPD: No Diabetes: No GI Disorders: Yes (HEMORRHOIDS) HTN: No Kidney Stones: Yes Seizures: No Thyroid Disease: No - Reproductive History Is Patient Now?: No - Immunization History Immunization Up to Date: No - Psycho-Social/Smoking History Smoking Status: No Smoking History: Current every day smoker Have you smoked in the past 12 months: Yes Number of Cigarettes Smoked Daily: 10 If you are a former smoker, when did you quit?: 2012 Information on smoking cessation initiated: No 'Breaking Loose' booklet given: 03/06/19 - Substance Abuse Hx (Audit-C & DAST Scrn) How often the patient has a drink containing alcohol: Never Score: In Men: 4 or > Positive; In Women: 3 or > Positive: 0 Screen Result (Pos requires Nsg. Audit-10AR): Negative In the last yr the pt used illegal drug/Rx for NonMed reason: No Score: Yes response is considered Positive: 0 Screen Result (Positive result requires Nsg. DAST-10): Negative *Physical Exam - Vital Signs Last Vital Signs Temp Pulse Resp BP Pulse Ox 99 F 80 16 148/72 98 12/31/19 11:45 12/31/19 11:45 12/31/19 11:45 12/31/19 11:45 12/31/19 11:45 Discharge - Discharge Information Problems reviewed: Yes Clinical Impression/Diagnosis: Bee sting reaction Qualifiers: Encounter type: initial encounter Injury intent: accidental or unintentional Qualified Code(s): T63.441A - Toxic effect of venom of bees, accidental (unintentional), initial encounter Condition: Stable Disposition: HOME - Admission No - Additional Discharge Information Prescriptions: Diphenhydramine [Benadryl -] 50 mg PO TID #15 capsule Cephalexin Monohydrate [Keflex] 250 mg PO Q6H #30 capsule - Follow up/Referral Referrals: Farooq Davenport MD [Staff Physician] - 2 Days - Patient Discharge Instructions Patient Printed Discharge Instructions: DI for Insect Bites and Stings Additional Instructions: This appears to be an allergic reaction, but an early infection is also a possibility. You are prescribed antihistamines for the allergic reaction and antibiotics in case there is a superinfection. You should rest and elevate the arm as much as possible. Using the arm can delay healing. You should follow-up in 2 days with your primary physician or hand specialist if symptoms persist. - Post Discharge Activity
[2019-12-31] MEDS ORDERED: DIPHTH,PERTUSS(ACELL),TET 0.5 ML DISP.SYRIN IM ONE ×2 (12:01→12:05)
== END 2019-12-31 13:00 | disposition home or self-care (01) ==
LOC: FER 11:44
PROC: 3E0234Z Introduction of Serum, Toxoid and Vaccine into Muscle, Percutaneous Approach (ICD-10-PCS; principal; 2019-12-31)
DX: T63.441A Toxic effect of venom of bees, accidental (unintentional), initial encounter (principal)
CPT/HCPCS: 90715; 99284-25

== ENCOUNTER 2020-04-28 03:45 | Emergency (ER) | payer OTHER ==
[2020-04-28 04:02] VITALS: BP 125/92; PULSE 82; BMI 27.4
[2020-04-28 04:03] VITALS: TEMP 98.1
[2020-04-28 04:49] LABS: BASO % 1.1 % (0-2.0); HEMATOCRIT 41.7 % (32.4-45.2); LYMPH % 25.9 % (8-40); MCH 27.7 pg (25.7-33.7); MCHC 33.4 g/dl (32.0-36.0); MEAN CELL VOLUME 82.8 fl (80-96); MEAN PLT VOLUME 8.4 fl (7.5-11.1); MONO % 7.4 % (3.8-10.2); NEUT % 64.6 % (42.8-82.8); PLATELET COUNT 500 K/MM3 (134-434); RBC 5.04 M/mm3 (3.60-5.2); RDW 15.1 % (11.6-15.6); WHITE BLOOD COUNT 14.1 K/mm3 (4.0-10.0)
[2020-04-28 05:14] LABS: CHLORIDE 107 mmol/L (98-107); SODIUM 140 mmol/L (136-145)
[2020-04-28 05:16] LABS: ALBUMIN 3.7 g/dl (3.4-5.0); ANION GAP 4 MMOL/L (8-16); BLOOD UREA NITROGEN 14.8 mg/dL (7-18); CALCIUM 8.8 mg/dL (8.5-10.1); CO2 29 mmol/L (21-32); GLUCOSE,RANDOM 82 mg/dL (74-106)
[2020-04-28 05:19] LABS: SGPT/ALT 17 U/L (13-61)
[2020-04-28 05:20] LABS: CREATININE 0.7 mg/dL (0.55-1.3); SGOT/AST 15 U/L (15-37)
[2020-04-28 05:21] LABS: BILIRUBIN,TOTAL 0.2 mg/dL (0.2-1); TOT PROT 7.3 g/dl (6.4-8.2)
[2020-04-28 05:24] LABS: ALK PHOS 77 U/L (45-117)
[2020-04-28] MEDS ORDERED: LOCK ITEM NR ONE (07:26)
== END 2020-04-28 05:36 | disposition home or self-care (01) ==
LOC: FER 03:45
DX: R07.89 Other chest pain (principal)
CPT/HCPCS: 36415; 80053; 82550; 84484; 85025; 93005; 99284-25

== ENCOUNTER 2020-09-28 21:21 | Emergency (ER) | payer OTHER ==
[2020-09-28 21:36] VITALS: BP 110/70; PULSE 79; TEMP 98.1; BMI 27.2
[2020-09-28 22:48] LABS: EPITHELIAL CELLS FEW /hpf; HCG,QUALITATIVE URINE Negative
== END 2020-09-28 23:30 | disposition home or self-care (01) ==
LOC: FER 21:21
DX: K52.9 Noninfective gastroenteritis and colitis, unspecified (principal); E73.9 Lactose intolerance, unspecified
CPT/HCPCS: 81003; 81015; 84703; 87086; 87186; 99283-25

== ENCOUNTER 2021-01-20 21:15 | Emergency (ER) | payer OTHER ==
[2021-01-20 21:29] VITALS: BMI 25.8
[2021-01-20 21:41] VITALS: BP 131/93; PULSE 110; TEMP 98.9
[2021-01-21] MEDS ORDERED: KETOROLAC TROMETHAMINE 60 MG/2 ML VIAL IM ONE (00:01)
[2021-01-21] MEDS ORDERED: KETOROLAC TROMETHAMINE 60 MG/2 ML VIAL ONE (00:04)
== END 2021-01-21 00:28 | disposition home or self-care (01) ==
LOC: FER 21:15
PROC: 3E0233Z Introduction of Anti-inflammatory into Muscle, Percutaneous Approach (ICD-10-PCS; principal; 2021-01-20)
DX: M62.838 Other muscle spasm (principal); R51.9 Headache, unspecified
CPT/HCPCS: 70450-TC; 99284-25

== ENCOUNTER 2021-02-02 22:48 | Emergency (ER) | payer OTHER ==
[2021-02-02] MEDS ORDERED: KETOROLAC TROMETHAMINE 15 MG/ML VIAL IM ONE (23:03)
[2021-02-02] MEDS ORDERED: KETOROLAC TROMETHAMINE 30 MG/1 ML VIAL ONE (23:09)
[2021-02-02 23:21] VITALS: BP 121/59; PULSE 82; TEMP 98.2; BMI 24.2
[2021-02-03] MEDS ORDERED: ACETAMINOPHEN 500 MG TABLET (FP) PO ONE (00:40)
[2021-02-03] MEDS ORDERED: ACETAMINOPHEN 500 MG TABLET (FP) ONE (00:49)
== END 2021-02-03 00:53 | disposition home or self-care (01) ==
LOC: FER 22:48
PROC: 3E0233Z Introduction of Anti-inflammatory into Muscle, Percutaneous Approach (ICD-10-PCS; principal; 2021-02-02)
DX: R07.89 Other chest pain (principal); M54.6 Pain in thoracic spine; Y04.0XXA Assault by unarmed brawl or fight, initial encounter; Y92.9 Unspecified place or not applicable
CPT/HCPCS: 71046-TC-FY; 72070-TC-FY; 99284-25

== ENCOUNTER 2021-02-10 08:26 | Emergency (ER) | payer OTHER ==
[2021-02-10] MEDS ORDERED: ACETAMINOPHEN 1000 MG/100 ML VIAL IVPB ONE (08:34)
[2021-02-10] MEDS ORDERED: SODIUM CHLORIDE 0.9% 1000 ML INFUS.BAG IV ONE (08:34)
[2021-02-10] MEDS ORDERED: ONDANSETRON 4 MG/2 ML VIAL IVPUSH ONE ×2 (08:35→08:38)
[2021-02-10 08:38] VITALS: TEMP 97.8; BMI 25.8
[2021-02-10] MEDS ORDERED: ACETAMINOPHEN INJECTION 100 ML IVPB ONE (08:47)
[2021-02-10] MEDS ORDERED: ONDANSETRON 4 MG/2 ML VIAL ONE (08:47)
[2021-02-10] MEDS ORDERED: KETOROLAC TROMETHAMINE 30 MG/1 ML VIAL IVPUSH ONE (11:15)
[2021-02-10] MEDS ORDERED: DEXAMETHASONE SOD PHOSPHATE 4 MG/1 ML VIAL IVPUSH ONE (11:15)
[2021-02-10] MEDS ORDERED: diazePAM 2 MG TABLET PO ONE (11:15)
[2021-02-10] MEDS ORDERED: KETOROLAC TROMETHAMINE 30 MG/1 ML VIAL ONE (11:19)
[2021-02-10] MEDS ORDERED: diazePAM 2 MG TABLET ONE (11:19)
[2021-02-10] MEDS ORDERED: DEXAMETHASONE SOD PHOSPHATE 4 MG/1 ML VIAL ONE (11:19)
[2021-02-10 12:43] VITALS: BP 119/78; PULSE 75
== END 2021-02-10 12:45 | disposition home or self-care (01) ==
LOC: FER 08:26
PROC: 3E033NZ Introduction of Analgesics, Hypnotics, Sedatives into Peripheral Vein, Percutaneous Approach (ICD-10-PCS; principal; 2021-02-10)
PROC: 3E033GC Introduction of Other Therapeutic Substance into Peripheral Vein, Percutaneous Approach (ICD-10-PCS; 2021-02-10)
PROC: 3E033GC Introduction of Other Therapeutic Substance into Peripheral Vein, Percutaneous Approach (ICD-10-PCS; 2021-02-10)
PROC: 3E033GC Introduction of Other Therapeutic Substance into Peripheral Vein, Percutaneous Approach (ICD-10-PCS; 2021-02-10)
PROC: 3E033GC Introduction of Other Therapeutic Substance into Peripheral Vein, Percutaneous Approach (ICD-10-PCS; 2021-02-10)
PROC: 3E0333Z Introduction of Anti-inflammatory into Peripheral Vein, Percutaneous Approach (ICD-10-PCS; 2021-02-10)
DX: M54.42 Lumbago with sciatica, left side (principal)
CPT/HCPCS: 72131-TC; 74176-TC; 99284-25; J0131

== ENCOUNTER 2022-08-17 21:55 | Emergency (ER) | payer OTHER ==
[2022-08-17 22:04] VITALS: BP 115/74; PULSE 78; RESP 16; TEMP 98.9; BMI 27.6
[2022-08-17 23:12] LABS: HEMATOCRIT 41.7 % (32.4-45.2); MCH 28.3 pg (25.7-33.7); MCHC 33.6 g/dl (32.0-36.0); MEAN CELL VOLUME 84.3 fl (80-96); MEAN PLT VOLUME 7.8 fl (7.5-11.1); PLATELET COUNT 390.5 10^3/uL (134-434); RBC 4.95 10^6/uL (3.60-5.2); RDW 15.7 % (11.6-15.6); WHITE BLOOD COUNT 12.9 10^3/uL (4.0-10.8)
[2022-08-17 23:34] LABS: ALBUMIN 3.9 g/dl (3.4-5.0); BILIRUBIN,TOTAL 0.4 mg/dl (0.2-1); CALCIUM 8.9 mg/dl (8.5-10); CREATININE 0.6 mg/dl (0.55-1.3); TOT PROT 6.8 g/dl (6.4-8.2)
== END 2022-08-18 00:22 | disposition home or self-care (01) ==
LOC: FER 21:55
DX: R14.0 Abdominal distension (gaseous) (principal)
CPT/HCPCS: 36415; 74019-TC-FY; 80053; 85027; 99284-25

== ENCOUNTER 2022-11-20 21:42 | Emergency (ER) | payer OTHER ==
[2022-11-20 21:54] VITALS: BP 105/72; PULSE 79; RESP 16; TEMP 98.6; BMI 25.8
[2022-11-20 23:02] LABS: EPITHELIAL CELLS MODERATE /hpf
== END 2022-11-20 23:11 | disposition home or self-care (01) ==
LOC: FER 21:42
DX: N89.8 Other specified noninflammatory disorders of vagina (principal); L29.2 Pruritus vulvae
CPT/HCPCS: 36415; 81003; 81015; 87086; 87491; 87591; 99283-25

== ENCOUNTER 2023-12-08 12:52 | Emergency (ER) | payer OTHER ==
[2023-12-08 13:09] VITALS: BP 107/74; PULSE 86; RESP 18; TEMP 98.3; BMI 28.4
[2023-12-08] MEDS ORDERED: SODIUM CHLORIDE 0.9% 1000 ML INFUS.BAG IV ONE (13:24)
[2023-12-08] MEDS ORDERED: KETOROLAC TROMETHAMINE 15 MG/ML VIAL IVPUSH ONE (13:24)
[2023-12-08] MEDS ORDERED: DEXAMETHASONE SOD PHOSPHATE 10 MG/1 ML VIAL PO ONE (13:24)
[2023-12-08 13:48] LABS: HEMATOCRIT 42.4 % (32.4-45.2); HEMOGLOBIN 13.5 G/dL (10.7-15.3); MCH 26.6 pg (25.7-33.7); MCHC 31.9 g/dl (32.0-36.0); MEAN CELL VOLUME 83.4 fl (80-96); MEAN PLT VOLUME 8.1 fl (7.5-11.1); PLATELET COUNT 411.3 10^3/uL (134-434); RBC 5.08 10^6/uL (3.60-5.2); RDW 15.9 % (11.6-15.6); WHITE BLOOD COUNT 10.2 10^3/uL (4.0-10.8)
[2023-12-08 13:54] LABS: PLATELET ESTIMATE ADEQUATE
[2023-12-08 13:55] LABS: ALK PHOS 55 U/L (45-117); ANION GAP 7 mmol/L (4-13); BILIRUBIN,TOTAL 0.3 mg/dl (0.2-1); CALCIUM 8.8 mg/dl (8.5-10.1); CHLORIDE 105 mmol/L (98-107); CO2 25 mmol/L (21-32); CREATININE 0.6 mg/dl (0.6-1.3); GLUCOSE,RANDOM 117 mg/dl (74-106); POTASSIUM 3.9 mmol/L (3.5-5.1); SGOT/AST 13 U/L (15-37); SGPT/ALT 12 U/L (7-52); SODIUM 137 mmol/L (136-145)
== END 2023-12-08 15:15 | disposition left against medical advice (07) ==
LOC: FER 12:52
DX: M25.472 Effusion, left ankle (principal); R07.9 Chest pain, unspecified
CPT/HCPCS: 36415; 80053; 84484; 85027; 93005; 93971-TC; 99285-25

== ENCOUNTER 2023-12-25 16:40 | Emergency (ER) | payer OTHER ==
[2023-12-25 16:59] LABS: HCG,QUALITATIVE URINE Negative
[2023-12-25 17:00] VITALS: BP 117/79; PULSE 76; RESP 16; TEMP 98.6; BMI 27.0
[2023-12-25 17:41] LABS: AMORP URATES FEW /hpf (NONE SEEN)
== END 2023-12-25 18:11 | disposition home or self-care (01) ==
LOC: FER 16:40
DX: R31.9 Hematuria, unspecified (principal); R10.30 Lower abdominal pain, unspecified; N39.0 Urinary tract infection, site not specified
CPT/HCPCS: 81003; 81015; 84703; 87086; 99283-25

== ENCOUNTER 2024-01-06 12:23 | Emergency (ER) | payer OTHER ==
[2024-01-06] MEDS ORDERED: LIDOCAINE 5% TOPICAL PATCH ONE (12:37)
[2024-01-06] MEDS ORDERED: IBUPROFEN 400 MG TABLET (FP) PO ONE (12:37)
[2024-01-06] MEDS: IBUPROFEN 400 MG TABLET (FP) PO ONE (12:40)
[2024-01-06] MEDS: LIDOCAINE 5% TOPICAL PATCH TP ONE (12:42)
[2024-01-06 12:51] VITALS: BP 105/73; PULSE 97; RESP 16; TEMP 98.4; BMI 27.2
[2024-01-06] MEDS ORDERED: LIDOCAINE PATCH REMOVAL MC ONE (22:00)
== END 2024-01-06 13:20 | disposition home or self-care (01) ==
LOC: FER 12:23
DX: M54.50 Low back pain, unspecified (principal)
CPT/HCPCS: 99283-25

== ENCOUNTER 2024-02-24 17:58 | Emergency (ER) | payer OTHER ==
[2024-02-24 18:02] VITALS: BP 154/94; PULSE 73; RESP 18; TEMP 97.5; BMI 27.6
[2024-02-24] MEDS ORDERED: ACETAMINOPHEN INJECTION 100 ML ONE (18:16)
[2024-02-24] MEDS ORDERED: ONDANSETRON 4 MG/2 ML VIAL ONE (18:16)
[2024-02-24] MEDS: ONDANSETRON 4 MG/2 ML VIAL IVPUSH ONE (18:40)
[2024-02-24] MEDS: ACETAMINOPHEN 1000 MG/100 ML BAG IVPB ONE (18:44)
[2024-02-24] MEDS ORDERED: KETOROLAC TROMETHAMINE 15 MG/ML VIAL ONE (18:44)
[2024-02-24] MEDS: KETOROLAC TROMETHAMINE 15 MG/ML VIAL IVPUSH ONE (19:00)
[2024-02-24 19:05] LABS: HEMATOCRIT 40.9 % (32.4-45.2); HEMOGLOBIN 13.2 G/dL (10.7-15.3); MCH 26.5 pg (25.7-33.7); MCHC 32.2 g/dl (32.0-36.0); MEAN CELL VOLUME 82.2 fl (80-96); MEAN PLT VOLUME 8.7 fl (7.5-11.1); PLATELET COUNT 408.6 10^3/uL (134-434); RBC 4.97 10^6/uL (3.60-5.2); RDW 15.7 % (11.6-15.6); WHITE BLOOD COUNT 10.2 10^3/uL (4.0-10.8)
[2024-02-24 19:15] LABS: EPITHELIAL CELLS 0-5 /hpf
[2024-02-24 19:18] LABS: ALBUMIN 4.4 g/dl (3.4-5.0); ALK PHOS 56 U/L (45-117); ANION GAP 6 mmol/L (4-13); BILIRUBIN,TOTAL 0.2 mg/dl (0.2-1); CALCIUM 9.4 mg/dl (8.5-10.1); CHLORIDE 104 mmol/L (98-107); CO2 29 mmol/L (21-32); CREATININE 0.7 mg/dl (0.6-1.3); GLUCOSE,RANDOM 87 mg/dl (74-106); POTASSIUM 3.8 mmol/L (3.5-5.1); SGOT/AST 11 U/L (15-37); SGPT/ALT 11 U/L (7-52); SODIUM 139 mmol/L (136-145)
== END 2024-02-24 22:56 | disposition home or self-care (01) ==
LOC: FER 17:58
PROC: 3E033NZ Introduction of Analgesics, Hypnotics, Sedatives into Peripheral Vein, Percutaneous Approach (ICD-10-PCS; principal; 2024-02-24)
PROC: 3E0333Z Introduction of Anti-inflammatory into Peripheral Vein, Percutaneous Approach (ICD-10-PCS; 2024-02-24)
PROC: 3E033GC Introduction of Other Therapeutic Substance into Peripheral Vein, Percutaneous Approach (ICD-10-PCS; 2024-02-24)
DX: N83.201 Unspecified ovarian cyst, right side (principal); N20.0 Calculus of kidney; N88.8 Other specified noninflammatory disorders of cervix uteri; R31.9 Hematuria, unspecified; R10.2 Pelvic and perineal pain
CPT/HCPCS: 36415; 74178-TC; 76830-TC; 80053; 81003; 81015; 84703; 85027; 87086; 99284-25; J0131; Q9967

== ENCOUNTER 2024-07-17 09:55 | Emergency (ER) | payer OTHER ==
[2024-07-17 10:25] VITALS: BP 123/74; PULSE 79; RESP 18; TEMP 98.2; BMI 29.0
[2024-07-17] MEDS ORDERED: KETOROLAC TROMETHAMINE 15 MG/ML VIAL ONE (10:28)
[2024-07-17] MEDS ORDERED: diazePAM 5 MG TABLET ONE (10:29)
[2024-07-17] MEDS: KETOROLAC TROMETHAMINE 15 MG/ML VIAL IM ONE (10:42)
[2024-07-17] MEDS: diazePAM 5 MG TABLET PO ONE (10:42)
[2024-07-17 10:58] LABS: HEMATOCRIT 43.6 % (34.1-44.9); MCHC 32.1 g/dl (32.2-35.5); MEAN CELL VOLUME 81.3 fl (79.4-94.8); MEAN PLT VOLUME 9.1 fl (9.4-12.3); PLATELET COUNT # 470 x10^3/uL (182-369); RDW 16.1 % (12.2-17.1)
[2024-07-17 11:16] LABS: ALBUMIN 4.4 g/dl (3.4-5.0); ALK PHOS 63 U/L (45-117); ANION GAP 8 mmol/L (4-13); BILIRUBIN,TOTAL 0.5 mg/dl (0.2-1); CALCIUM 9.2 mg/dl (8.5-10.1); CHLORIDE 104 mmol/L (98-107); CO2 25 mmol/L (21-32); CREATININE 0.6 mg/dl (0.6-1.3); GLUCOSE,RANDOM 81 mg/dl (74-106); POTASSIUM 4.1 mmol/L (3.5-5.1); SGOT/AST 15 U/L (15-37); SGPT/ALT 17 U/L (7-52); SODIUM 137 mmol/L (136-145); TOT PROT 7.2 g/dl (6.4-8.2)
[2024-07-17 16:32] LABS: HCV DIAGNOSTIC IN-HOUSE W/RFLX NON-REACTIVE (NONREACTIVE)
[2024-07-17 16:33] LABS: HIV INTERPRETATION NEGATIVE (NEGATIVE)
== END 2024-07-17 11:37 | disposition home or self-care (01) ==
LOC: FER 09:55
PROC: 3E0233Z Introduction of Anti-inflammatory into Muscle, Percutaneous Approach (ICD-10-PCS; principal; 2024-07-17)
DX: R51.9 Headache, unspecified (principal); R07.89 Other chest pain
CPT/HCPCS: 36415; 71046-TC-FY; 80053; 83735; 84484; 85027; 86803; 87389; 93005; 99285-25

== ENCOUNTER 2024-09-19 18:20 | Emergency (ER) | payer OTHER ==
[2024-09-19 18:51] VITALS: BP 106/73; PULSE 70; RESP 18; TEMP 97.7; BMI 29.2
== END 2024-09-19 19:10 | disposition home or self-care (01) ==
LOC: FER 18:20
DX: R20.2 Paresthesia of skin (principal)
CPT/HCPCS: 99283-25